=== PATIENT | female | born 1995 | race American Indian/Alaskan Native ===

== ENCOUNTER 2017-04-25 11:12 | Outpatient (CLI) | payer BC | END 2017-04-25 13:00 | disposition home or self-care (01) | LOC: RAD 11:12 | DX: S83.411A Sprain of medial collateral ligament of right knee, initial encounter (principal) ==

== ENCOUNTER 2017-08-22 14:18 | Emergency (ER) | payer OTHER ==
[~2017-08-22] VITALS: Ht 167.6 cm; Wt 65.3 kg
[2017-08-22 15:50] VITALS: BP 97/62; TEMP 98.6
== END 2017-08-22 15:51 | disposition home or self-care (01) ==
LOC: ED 14:18
DX: S16.1XXA Strain of muscle, fascia and tendon at neck level, initial encounter (principal); M54.2 Cervicalgia; S60.222A Contusion of left hand, initial encounter; V43.52XA Car driver injured in collision with other type car in traffic accident, initial encounter
CPT/HCPCS: 99283; J1885